=== PATIENT | female | born 1965 | race African-American/Black ===

== ENCOUNTER 2020-02-17 12:16 | Emergency (ER) | payer MEDICAID, OTHER ==
[~2020-02-17] VITALS: Ht 167.6 cm; Wt 99.8 kg
[2020-02-17 12:31] VITALS: BP 116/66
[2020-02-17] MEDS ORDERED: KETOROLAC TROMETH 60MG/2ML VIAL IM ONE (13:15)
== END 2020-02-17 14:03 | disposition home or self-care (01) ==
LOC: ER 12:16
DX: S29.012A Strain of muscle and tendon of back wall of thorax, initial encounter (principal); E11.9 Type 2 diabetes mellitus without complications; I10 Essential (primary) hypertension; W18.39XA Other fall on same level, initial encounter; Y93.01 Activity, walking, marching and hiking; Y92.89 Other specified places as the place of occurrence of the external cause; Y99.8 Other external cause status
CPT/HCPCS: 71101; 96372; 99283; J1885